=== PATIENT | male | born 1975 | race Caucasian/White ===

== ENCOUNTER → 2022-12-15 09:01 | Outpatient (BNVA) | payer SELFPAY | PROVIDERS: Family Provider Nurse Practitioner Family; PCP Nurse Practitioner Family; Visit Provider Nurse Practitioner Family | DX: R22.1 Localized swelling, mass and lump, neck (principal); Z90.49 Acquired absence of other specified parts of digestive tract; Z78.9 Other specified health status; R03.0 Elevated blood-pressure reading, without diagnosis of hypertension; R53.83 Other fatigue; I10 Essential (primary) hypertension; F41.9 Anxiety disorder, unspecified | CPT/HCPCS: 80053; 80061; 82306; 84403; 84443 ==

== ENCOUNTER 2022-12-26 06:26 | Outpatient (CLI) | payer BC, SELFPAY ==
--- NOTE | 2022-12-26 06:30 | US_ITS ---
WS: [id number] ULTRASOUND SOFT TISSUES posterior right neck. HISTORY: R22.1 - Localized swelling, mass and lump, neck COMPARISON: None available. TECHNIQUE: 2-D and color Doppler imaging is submitted. Ultrasound is directed over the palpable area over the posterior high right neck. There is an ellipti shan shaped mass which is nearly isoechoic to adjacent muscle. This mass measures 2.5 x 0.8 x 3.6 cm. No increased vascularity. There is slight mass effect upon the adjacent soft tissues. This is probabl y a benign lesion such as a lipoma. IMPRESSION: Benign appearing but nonspecific soft tissue mass in the high posterior right neck. Probably represen ting a lipoma.
== END 2022-12-26 06:27 | disposition home or self-care (01) ==
LOC: RAD 06:27
PROVIDERS: PCP Nurse Practitioner Family; Visit Provider Nurse Practitioner Family
DX: R22.1 Localized swelling, mass and lump, neck (principal); Z78.9 Other specified health status; Z90.49 Acquired absence of other specified parts of digestive tract
CPT/HCPCS: 76536; 80053; 80061; 82306; 84403; 84443